=== PATIENT | female | born 1950 | race Caucasian/White ===

== ENCOUNTER 2017-06-16 00:30 | Emergency (ER) | payer MEDICARE, BC, OTHER ==
--- NOTE | 2017-06-16 02:15 | EDM.PDOC ---
ED HPI GENERAL MEDICAL PROBLEM - General Chief Complaint: ENT Problem Stated Complaint: EYE PAIN Time Seen by Provider: 06/16/17 01:49 Source of Information: Reports: Patient History Limitations: Reports: No Limitations - History of Present Illness INITIAL COMMENTS - FREE TEXT/NARRATIVE: The patient is a 66-year-old female who comes in with a chief complaint of floaters. She states that she was recently at a rodeo where there was a lot of dust and went. The last day or 2 she's noticed floaters in her right vision. It comes and goes but seems to be increasing. No vision change. She normally wears glasses and can still see normally with her glasses on. She has no pain in the eye. She has also had chronic blepharitis and states she's had a little bit increased watery discharge from the right eye. She started washing her eyelids with baby shampoo today. No swelling or pain around her eye. She comes in for evaluation tonight because she was told by her vice president integrated that if she ever had floaters in her vision that it could be a retinal problem and she should come in immediately. - Related Data Allergies Allergy/AdvReac Type Severity Reaction Status Date / Time Penicillins Allergy Rash Verified 06/16/17 00:42 Home Meds: Home Meds Aspirin [Halfprin] 81 mg PO DAILY 06/16/17 [History] Citalopram [Celexa] 20 mg PO DAILY 06/16/17 [History] Lisinopril 5 mg PO DAILY 06/16/17 [History] Past Medical History HEENT History: Reports: Other (See Below) Other HEENT History: blepharitis Cardiovascular History: Reports: Hypertension Genitourinary History: Reports: UTI, Recurrent Psychiatric History: Reports: Anxiety - Past Surgical History GI Surgical History: Reports: Appendectomy Female Surgical History: Reports: Hysterectomy Social & Family History - Family History Family Medical History: Noncontributory - Tobacco Use Smoking Status *Q: Never Smoker Used Tobacco, but Quit: No - Recreational Drug Use Recreational Drug Use: No ED ROS ENT - Review of Systems Review Of Systems: See Below Constitutional: Reports: No Symptoms HEENT: Reports: Eye Discharge. Denies: Eye Pain Neurological: Reports: Headache ED EXAM, ENT - Physical Exam Exam: See Below Exam Limited By: No Limitations General Appearance: Alert, WD/WN, No Apparent Distress Eye Exam: Right Eye: Other (Visual corey intact. Funduscopic exam shows normal retina in the visible portion on this nondilated exam lids also appear normal. No evidence of ocular foreign body. No discharge. Normal conjunctiva. Overall normal exam.), Bilateral Eye: EOMI, Normal Inspection, PERRL Course - Vital Signs Last Recorded V/S: Last Vital Signs Temp 36.6 C 06/16/17 00:37 Pulse 86 06/16/17 00:37 Resp 16 06/16/17 00:37 BP 159/101 H 06/16/17 00:37 Pulse Ox 100 06/16/17 00:37 - Re-Assessments/Exams Free Text/Narrative Re-Assessment/Exam: 06/16/17 03:08 Advised patient to follow-up with her eye doctor on Saturday or see ophthalmology on Saturday. Advised her to return to the emergency department if she has loss of vision or eye pain or other concerns. Partial retinal detachment is possible that the visualized portion of the retina on funduscopic exam today is normal. Could also be vitreous hemorrhage. No indication of vision threatening condition at this time. Departure - Departure Time of Disposition: 02:12 Disposition: Home, Self-Care 01 Clinical Impression: Floaters in visual field Qualifiers: Laterality: right Qualified Code(s): H43.391 - Other vitreous opacities, right eye - Discharge Information Instructions: Eye Floaters Referrals: Colton Solis MD [Primary Care Provider] - Forms: ED Department Discharge Additional Instructions: 1. Continue to wash R eyelids with baby shampoo and use warm compresses on the eye off and on 2. Follow up with Dr. Natarajan Saturday if possible. If Dr. Natarajan is not available, try to follow up with an ophthomologist in [place] on Saturday 3. Return to the Emergency Department if you have loss of vision in the eye or severe pain in the eye
== END 2017-06-16 02:20 | disposition home or self-care (01) ==
LOC: JD.ED 00:30
CPT/HCPCS: 99282; 99283